=== PATIENT | male | born 1950 | race Caucasian/White ===

== ENCOUNTER 2018-07-26 10:42 | Outpatient (CLI) | payer MEDICAID | END 2018-07-26 10:43 | disposition home or self-care (01) | LOC: LAB 10:42 ==

== ENCOUNTER 2018-08-28 09:04 | Outpatient (CLI) | payer MEDICAID | END 2018-08-28 09:05 | disposition home or self-care (01) | LOC: LAB 09:04 | DX: Z79.01 Long term (current) use of anticoagulants (principal); Z00.00 Encounter for general adult medical examination without abnormal findings; Z11.9 Encounter for screening for infectious and parasitic diseases, unspecified; E78.5 Hyperlipidemia, unspecified; R73.09 Other abnormal glucose; Z12.11 Encounter for screening for malignant neoplasm of colon ==

== ENCOUNTER 2018-08-29 09:38 | Outpatient (CLI) | payer MEDICAID | END 2018-08-29 09:39 | disposition home or self-care (01) | LOC: LAB 09:38 ==